=== PATIENT | female | born 1940 | race Caucasian/White ===

== ENCOUNTER 2016-10-23 12:46 | Inpatient (IN) | payer OTHER ==
[~2016-10-23] VITALS: Ht 149.9 cm; Wt 54.1 kg
[~2016-10-23 12:46] MED LIST: ADULT LOW STREN81 M3 PO; ALBUTEROL2.5 MG/3 M IH; AMOXICILLIN500 MG PO; ASPIR 8181 M1 PO; ASPIRIN CHEWABL81 M2 PO; AUGMENTIN875 MG PO; B-121000 MCG PO; CALCIUM500 M4 PO; CALTRATE 6001 TABLET PO; CALTRATE PLUS1 EACH PO; CEFTIN500 MG PO; CENTRUM SILV1 TABLE1 PO; CENTRUM SILVER1 EAC3 PO; CENTRUM SILVER1 EAC4 PO; CLOBETASOL PROPIONAT; COZAAR50 MG PO; CRANBERRY200 MG PO; CYANOCOBALAMI100 MCG PO; Calcium Carbonate,Ca PO; DESYREL 150 MG150 MG PO; DHA COMPLETE200 MG PO; DHA PRENATAL200 MG PO; DHA100 MG PO; DHEA50 MG PO; ELAVIL10 MG PO; FISH OIL 1,0001 EAC7 PO; FISH OIL 1,2001 EAC4 PO; FISH OIL CONC1 EACH PO; FLAX OIL1000 MG PO; FLAXSEED OIL1000 M4 PO; GLIPIZIDE ER2.5 MG PO; GLIPIZIDE PO; GLUCOTROL XL2.5 MG PO; GLUCOTROL10 MG PO; HYDROCHLOROTH12.5 M3 PO; HYDROCHLOROTHIAZIDE PO; HYDROCODON-ACE1 EAC7 PO; HYDROCODON-ACE1 EACH PO; IMDUR30 MG PO; ISOSORBIDE MONO30 MG PO; KETOCONAZOLE120 ML TP; KLOR-CON 1010 ME1 PO; LEVAQUIN750 MG PO; LOPRESSOR50 MG PO; LOSARTAN POTASS50 MG PO; LUMIGAN 0.01% LEFT EYE; LUMIGAN 0.50 DROP/2. LEFT EYE; LUMIGAN LEFT EYE; LUMIGAN2.5 ML BOTH EYES; LUTEIN20 MG PO; LUTEIN6 MG PO; MAGNESIUM400 M1 PO; METOPROLOL TART50 MG PO; NASACORT AQ16.5 GM BOTH NARES; NASACORT10.8 ML BOTH NARES; NIACIN500 M1 PO; NIASPAN,SLO-N1000 MG PO; NIASPAN,SLO-NI750 MG PO; NIASPAN750 MG PO; NIZORAL 2% CREA15 GM PO; OCUVITE SOFTGE1 EACH PO; PREDNISONE10 MG PO; Proventil,Ventolin H IH; RANITIDINE HCL150 MG PO; ST. JOSEPH ASPI81 MG PO; SYMBICORT60 INHALAT IH; TEMOVATE TP; TESSALON PERLE100 MG PO; TOPROL XL50 MG PO; TRAZODONE HCL150 MG PO; TYLENOL EXTRA500 MG PO; TYLENOL WITH C1 EACH PO; VENTOLIN HFA18 GM IH; VENTOLIN17 GM IH; VITAMIN B122500 MCG PO; ZANTAC150 MG PO; ZANTAC300 MG PO; ZITHROMAX Z-PA250 MG PO; ZYRTEC10 M3 PO
[2016-10-23 13:58] LABS: HEMATOCRIT 37.7 % (36.0-46.0); MCH 31.2 PG (29.0-34.0); MCHC 32.9 G/DL (30.0-36.0); MCV 94.7 FL (83-99); MEAN PLAT.VOLUME 9.5 uM^3 (9.5-12.4); PLATELET COUNT 200 K/uL (156-360); RBC DIS.WIDTH-SD 48.4 % (39-53); RED BLOOD COUNT 3.98 M/uL (3.80-5.20); WHITE BLOOD COUNT 13.2 K/uL (4.1-10.2)
[2016-10-23 14:09] LABS: CHLORIDE 102 mEq/L (99-109); POTASSIUM 3.8 mEq/L (3.7-5.4); SODIUM 139 mEq/L (136-147)
[2016-10-23 14:10] LABS: D-DIMER ELISA 1.71 mg/L FEU (< 0.57); PROTHROMBIN TIME 10.4 (9.2-11.2); PTT 24.1 (25-32)
[2016-10-23 14:12] LABS: GLUCOSE 150 mg/dL (70-99)
[2016-10-23 14:13] LABS: ANION GAP 14 MEQ/L (2-14)
[2016-10-23 14:15] LABS: ALKALINE PHOSPHATASE 90 IU/L (3-129); GFR ESTIMATE (CALCULATED) > 59 mL/min/
[2016-10-23 14:16] LABS: UREA NITROGEN (BUN) 16 mg/dL (9-23)
[2016-10-23 14:17] LABS: DIRECT BILIRUBIN 0.4 mg/dL (0.0-0.3)
[2016-10-23 14:19] LABS: CREATINE KINASE 61 IU/L (1-294); LIPASE 13 U/L (1.0-51.0)
[2016-10-23 14:26] LABS: TROP-I INTERPRETATION POSITIVE; TROPONIN-I 0.83 ng/mL (0.0-0.30)
[2016-10-23] MEDS ORDERED: LUMIGAN 0.50 DROP/22 BOTH EYES (15:06)
[2016-10-23] MEDS ORDERED: NIASPAN,SLO-N1000 MG PO (15:07)
[2016-10-23] MEDS ORDERED: FISH OIL 1,001000 M2 PO (15:10)
[2016-10-23] MEDS ORDERED: CYANOCOBALAM1000 MCG PO (15:11)
[2016-10-23] MEDS ORDERED: GLIPIZIDE ER2.5 MG PO (15:13)
[2016-10-23 17:42] LABS: HEMATOCRIT 37.1 % (36.0-46.0); MCH 31.6 PG (29.0-34.0); MCHC 33.7 G/DL (30.0-36.0); MCV 93.9 FL (83-99); MEAN PLAT.VOLUME 9.1 uM^3 (9.5-12.4); PLATELET COUNT 184 K/uL (156-360); RBC DIS.WIDTH-CV 13.9 % (11.8-14.6); RBC DIS.WIDTH-SD 48.2 % (39-53); RED BLOOD COUNT 3.95 M/uL (3.80-5.20); WHITE BLOOD COUNT 14.1 K/uL (4.1-10.2)
[2016-10-23 18:05] LABS: TROP-I INTERPRETATION POSITIVE; TROPONIN-I 1.35 ng/mL (0.0-0.30)
[2016-10-23 19:40] VITALS: BP 125/63
[2016-10-23 21:43] LABS: INTER. NORMALIZED RATIO 1.1; PROTHROMBIN TIME 11.3 (9.2-11.2)
[2016-10-23 21:54] LABS: PTT 87.9 (25-32)
[2016-10-23 23:20] VITALS: BP 118/72
[2016-10-24 01:26] LABS: TROP-I INTERPRETATION POSITIVE; TROPONIN-I 1.11 ng/mL (0.0-0.30)
[2016-10-24 04:33] VITALS: BP 108/57
[2016-10-24 06:17] LABS: HEMATOCRIT 33.7 % (36.0-46.0); MCH 31.9 PG (29.0-34.0); MCHC 33.8 G/DL (30.0-36.0); MCV 94.4 FL (83-99); MEAN PLAT.VOLUME 9.9 uM^3 (9.5-12.4); PLATELET COUNT 177 K/uL (156-360); RBC DIS.WIDTH-CV 14.2 % (11.8-14.6); RBC DIS.WIDTH-SD 49.1 % (39-53); RED BLOOD COUNT 3.57 M/uL (3.80-5.20); WHITE BLOOD COUNT 13.3 K/uL (4.1-10.2)
[2016-10-24 06:46] LABS: HDL CHOLESTEROL 73 MG/DL (Desirable>=50); LDL CHOLESTEROL 72 mg/dL (Desirable<100); NON-HDL CHOLESTEROL 82 mg/dL (Desirable<160); TOTAL CHOLESTEROL 155 mg/dL (Desirable<200); TRIGLYCERIDES 49 MG/DL (Normal: <150)
[2016-10-24 06:57] LABS: EOSINOPHIL (%) 0 % (0-5); IMMATURE GRANULOCYTE (%) 0.8 % (0.0-0.7); IMMATURE GRANULOCYTE COUNT 0.1 K/uL; INSTRUMENT ABS NEUTROPHIL CT 11.9 K/uL; LYMPHOCYTE COUNT 0.7 K/uL (1.0-2.8); MONOCYTE COUNT 0.7 K/uL (0-0.8); NEUTROPHIL (%) 89.1 % (45-76); NEUTROPHIL COUNT 11.9 K/uL (1.8-6.4)
[2016-10-24 07:26] VITALS: BP 102/57
[2016-10-24 07:52] LABS: Estimated Average Glucose 120 mg/dL (70-123); HEMOGLOBIN A1c (GLYCOHEMOGLOB) 5.8 % HGB (Below 5.7)
[2016-10-24 08:07] LABS: POINT-OF-CARE METER ID UU13113781
[2016-10-24 10:06] LABS: INTERNAL CONTROL VALID? YES
[2016-10-24 11:40] VITALS: BP 93/53
[2016-10-24 15:24] VITALS: BP 106/53
[2016-10-24 16:31] LABS: POINT-OF-CARE METER ID UU13113781
[2016-10-24 21:33] VITALS: BP 100/61
[2016-10-24 21:39] LABS: POINT-OF-CARE METER ID UU14174216
[2016-10-24 23:51] VITALS: BP 109/54
[2016-10-25 03:44] VITALS: BP 125/63
[2016-10-25 04:57] LABS: EOSINOPHIL (%) 0.2 % (0-5); HEMATOCRIT 29.9 % (36.0-46.0); IMMATURE GRANULOCYTE (%) 0.4 % (0.0-0.7); LYMPHOCYTE COUNT 1.2 K/uL (1.0-2.8); MCH 31.6 PG (29.0-34.0); MCHC 33.4 G/DL (30.0-36.0); MCV 94.6 FL (83-99); MONOCYTE (%) 6.9 % (3-12); MONOCYTE COUNT 0.7 K/uL (0-0.8); NEUTROPHIL (%) 80.6 % (45-76); PLATELET COUNT 187 K/uL (156-360); RBC DIS.WIDTH-CV 14.6 % (11.8-14.6); RBC DIS.WIDTH-SD 51.5 % (39-53); RED BLOOD COUNT 3.16 M/uL (3.80-5.20)
[2016-10-25 05:09] LABS: CHLORIDE 107 mEq/L (99-109); POTASSIUM 3.6 mEq/L (3.7-5.4); SODIUM 142 mEq/L (136-147)
[2016-10-25 05:10] LABS: GLUCOSE 114 mg/dL (70-99)
[2016-10-25 05:12] LABS: ANION GAP 9 MEQ/L (2-14)
[2016-10-25 05:14] LABS: GFR ESTIMATE (CALCULATED) > 59 mL/min/
[2016-10-25 05:15] LABS: UREA NITROGEN (BUN) 17 mg/dL (9-23)
[2016-10-25 07:26] VITALS: BP 142/69
[2016-10-25 08:10] LABS: POINT-OF-CARE METER ID UU13113781; POINT-OF-CARE USER ID ENVKC36
[2016-10-25 11:32] LABS: POINT-OF-CARE METER ID UU13113781; POINT-OF-CARE USER ID ENVKC36
[2016-10-25 11:50] VITALS: BP 106/55
[2016-10-25 15:53] VITALS: BP 140/60
[2016-10-25 16:52] LABS: POINT-OF-CARE METER ID UU13113781; POINT-OF-CARE USER ID ENVKC36
[2016-10-25 20:27] VITALS: BP 126/59
[2016-10-25 21:58] LABS: POINT-OF-CARE METER ID UU14174216
[2016-10-26] VITALS (7 sets, daily range): BP systolic 113–159; BP diastolic 57–80
[2016-10-26 07:25] LABS: EOSINOPHIL (%) 1.6 % (0-5); EOSINOPHIL COUNT 0.1 K/uL (0-0.3); HEMATOCRIT 31.7 % (36.0-46.0); IMMATURE GRANULOCYTE (%) 0.8 % (0.0-0.7); IMMATURE GRANULOCYTE COUNT 0.1 K/uL; INSTRUMENT ABS NEUTROPHIL CT 4.9 K/uL; LYMPHOCYTE COUNT 1.3 K/uL (1.0-2.8); MCH 31.5 PG (29.0-34.0); MCHC 32.5 G/DL (30.0-36.0); MCV 96.9 FL (83-99); MEAN PLAT.VOLUME 10.2 uM^3 (9.5-12.4); MONOCYTE (%) 9.2 % (3-12); MONOCYTE COUNT 0.7 K/uL (0-0.8); NEUTROPHIL (%) 69.3 % (45-76); NEUTROPHIL COUNT 4.9 K/uL (1.8-6.4); PLATELET COUNT 212 K/uL (156-360); RBC DIS.WIDTH-CV 14.7 % (11.8-14.6); RBC DIS.WIDTH-SD 52.6 % (39-53); RED BLOOD COUNT 3.27 M/uL (3.80-5.20); WHITE BLOOD COUNT 7.1 K/uL (4.1-10.2)
[2016-10-26 08:00] LABS: POINT-OF-CARE METER ID UU13113781
[2016-10-26 09:37] LABS: ANION GAP 8 MEQ/L (2-14); CHLORIDE 106 MEQ/L (99-109); GFR ESTIMATE (CALCULATED) > 59 mL/min/; GLUCOSE 100 mg/dL (70-99); POTASSIUM 3.8 MEQ/L (3.7-5.4); SAMPLE HEMOLYSIS CHECK 0; SAMPLE ICTERIC CHECK 0; SAMPLE LIPEMIA CHECK 0; SODIUM 142 MEQ/L (136-147); UREA NITROGEN (BUN) 11 mg/dL (9-23)
[2016-10-26 12:06] LABS: POINT-OF-CARE METER ID UU13113781
[2016-10-27 03:30] VITALS: BP 116/57
[2016-10-27 07:50] LABS: HEMATOCRIT 31.8 % (36.0-46.0); MCH 32.3 PG (29.0-34.0); MCHC 33.3 G/DL (30.0-36.0); MEAN PLAT.VOLUME 10.2 uM^3 (9.5-12.4); PLATELET COUNT 228 K/uL (156-360); RBC DIS.WIDTH-CV 14.5 % (11.8-14.6); RED BLOOD COUNT 3.28 M/uL (3.80-5.20); WHITE BLOOD COUNT 7.3 K/uL (4.1-10.2)
[2016-10-27 08:45] VITALS: BP 133/79
[2016-10-27 08:59] LABS: ANION GAP 11 MEQ/L (2-14); CHLORIDE 105 MEQ/L (99-109); GFR ESTIMATE (CALCULATED) > 59 mL/min/; GLUCOSE 130 mg/dL (70-99); POTASSIUM 4.1 MEQ/L (3.7-5.4); SAMPLE HEMOLYSIS CHECK 0; SAMPLE ICTERIC CHECK 0; SAMPLE LIPEMIA CHECK 0; SODIUM 141 MEQ/L (136-147); UREA NITROGEN (BUN) 15 mg/dL (9-23)
[2016-10-27 10:33] LABS: EOSINOPHIL (%) 0 % (0-5); HEMATOCRIT 32.5 % (36.0-46.0); IMMATURE GRANULOCYTE (%) 1.2 % (0.0-0.7); IMMATURE GRANULOCYTE COUNT 0.1 K/uL; INSTRUMENT ABS NEUTROPHIL CT 5.8 K/uL; LYMPHOCYTE COUNT 0.8 K/uL (1.0-2.8); MCH 31.9 PG (29.0-34.0); MCHC 32.6 G/DL (30.0-36.0); MCV 97.9 FL (83-99); MEAN PLAT.VOLUME 10.3 uM^3 (9.5-12.4); MONOCYTE (%) 7.3 % (3-12); MONOCYTE COUNT 0.5 K/uL (0-0.8); NEUTROPHIL (%) 80.6 % (45-76); NEUTROPHIL COUNT 5.8 K/uL (1.8-6.4); PLATELET COUNT 244 K/uL (156-360); RBC DIS.WIDTH-CV 14.7 % (11.8-14.6); RBC DIS.WIDTH-SD 53.6 % (39-53); RED BLOOD COUNT 3.32 M/uL (3.80-5.20); WHITE BLOOD COUNT 7.2 K/uL (4.1-10.2)
[2016-10-27] MEDS ORDERED: PRAVASTATIN SOD40 MG PO (11:35)
[2016-10-27] MEDS ORDERED: LOSARTAN POTASS25 MG PO (11:36)
[2016-10-27] MEDS ORDERED: ASPIR-LOW81 MG PO (11:37)
[2016-10-27] MEDS ORDERED: PREDNISONE10 MG PO (11:38)
[2016-10-27] MEDS ORDERED: LEVAQUIN500 MG PO (11:38)
[2016-10-27] MEDS ORDERED: PEPCID20 MG PO (11:39)
[2016-10-27 11:40] VITALS: BP 136/65
== END 2016-10-27 14:01 | disposition home or self-care (01) | DRG 280 ==
LOC: EME 12:46 → EDOF 17:00 → 4EAST 17:00
PROVIDERS: Emergency Medicine; Hospitalist; Internal Medicine
DX: I21.4 Non-ST elevation (NSTEMI) myocardial infarction (principal); J44.0 Chronic obstructive pulmonary disease with (acute) lower respiratory infection; J15.4 Pneumonia due to other streptococci; I25.810 Atherosclerosis of coronary artery bypass graft(s) without angina pectoris; I10 Essential (primary) hypertension; E11.65 Type 2 diabetes mellitus with hyperglycemia; E78.5 Hyperlipidemia, unspecified; I34.0 Nonrheumatic mitral (valve) insufficiency; I49.1 Atrial premature depolarization; H40.9 Unspecified glaucoma; Z66 Do not resuscitate; Z91.81 History of falling; Z86.73 Personal history of transient ischemic attack (TIA), and cerebral infarction without residual deficits; Z85.038 Personal history of other malignant neoplasm of large intestine; Z90.49 Acquired absence of other specified parts of digestive tract; Z95.1 Presence of aortocoronary bypass graft; Z95.5 Presence of coronary angioplasty implant and graft; Z95.2 Presence of prosthetic heart valve; Z79.82 Long term (current) use of aspirin; Z79.84 Long term (current) use of oral hypoglycemic drugs; Z60.2 Problems related to living alone
CPT/HCPCS: 71020; 71275; 72220; 80048; 80061; 80076; 82550; 82948; 83036; 83605; 83690; 83880; 84484; 85025; 85027; 85379; 85610; 85730; 87040; 87070; 87205; 87449; 93005; 93306; 94640; 94640 76; 99202; 99281; 99285; J0456; J0696; J1815; J3475; J7030; J7050; J7512

== ENCOUNTER 2017-06-15 11:16 | Emergency (ER) | payer OTHER ==
[~2017-06-15] VITALS: Ht 149.9 cm; Wt 55.0 kg
[~2017-06-15 11:16] MED LIST changes: +ASPIR-LOW81 MG PO; +CYANOCOBALAM1000 MCG PO; +FISH OIL 1,001000 M2 PO; +LEVAQUIN500 MG PO; +LOSARTAN POTASS25 MG PO; +LUMIGAN 0.50 DROP/22 BOTH EYES; +PEPCID20 MG PO; +PRAVASTATIN SOD40 MG PO
[2017-06-15 12:25] LABS: HEMATOCRIT 35.7 % (36.0-46.0); HEMOGLOBIN 11.8 G/DL (11.9-15.5); MCHC 33.1 G/DL (30.0-36.0); MCV 96.7 FL (83-99); PLATELET COUNT 223 K/uL (156-360); RBC DIS.WIDTH-CV 12.8 % (11.8-14.6); RBC DIS.WIDTH-SD 45.9 % (39-53); RED BLOOD COUNT 3.69 M/uL (3.80-5.20); WHITE BLOOD COUNT 9.7 K/uL (4.1-10.2)
[2017-06-15 12:34] LABS: ALBUMIN 3.5 g/dL (3.2-4.8); CHLORIDE 102 mEq/L (99-109); POTASSIUM 4.4 mEq/L (3.7-5.4); SODIUM 140 mEq/L (136-147)
[2017-06-15 12:36] LABS: GLUCOSE 78 mg/dL (70-99); TOTAL PROTEIN 5.7 g/dL (6.4-8.3)
[2017-06-15 12:38] LABS: TOTAL BILIRUBIN 1.3 mg/dL (0.0-1.0)
[2017-06-15 12:40] LABS: ALKALINE PHOSPHATASE 129 IU/L (3-129); CREATININE 0.7 mg/dL (0.6-1.3); GFR ESTIMATE (CALCULATED) > 59 mL/min/
[2017-06-15 12:41] LABS: UREA NITROGEN (BUN) 21 mg/dL (9-23)
[2017-06-15 12:42] LABS: AST (GOT) 38 IU/L (2-34)
[2017-06-15 12:43] LABS: ALT (GPT) 32 IU/L (3-49)
[2017-06-15 13:57] LABS: APPEARANCE SL.HAZY ((CLEAR)); BILIRUBIN NEGATIVE; BLOOD SMALL; COLOR YELLOW ((YELLOW)); GLUCOSE (STRIP) NEGATIVE; KETONES 80; LEUKOCYTES NEGATIVE; NITRITE NEGATIVE; PROTEIN (STRIP) 30; SPECIFIC GRAVITY 1.021 (1.000-1.030)
[2017-06-15 14:07] LABS: BACTERIA RARE /HPF; CALCIUM OXALATE CRYSTALS 3+ /HPF; EPITHELIAL CELLS 1+ /HPF; HYALINE CASTS 0-5 /LPF; MUCUS TRACE /LPF; UCUL ADDED? YES
[2017-06-15] MEDS ORDERED: FLAGYL500 MG PO (15:11)
[2017-06-15] MEDS ORDERED: ZOFRAN ODT4 MG PO (15:11)
[2017-06-15] MEDS ORDERED: ULTRAM50 MG PO (15:11)
[2017-06-15] MEDS ORDERED: CIPRO500 MG PO (15:11)
[2017-06-15 16:02] VITALS: BP 124/83
== END 2017-06-15 16:14 | disposition home or self-care (01) ==
LOC: EME 11:16
DX: K52.9 Noninfective gastroenteritis and colitis, unspecified (principal); R10.31 Right lower quadrant pain; R11.2 Nausea with vomiting, unspecified; E11.9 Type 2 diabetes mellitus without complications; I10 Essential (primary) hypertension; I25.2 Old myocardial infarction; K51.90 Ulcerative colitis, unspecified, without complications; J44.9 Chronic obstructive pulmonary disease, unspecified; Z86.73 Personal history of transient ischemic attack (TIA), and cerebral infarction without residual deficits; Z87.442 Personal history of urinary calculi; Z88.0 Allergy status to penicillin; Z90.49 Acquired absence of other specified parts of digestive tract; Z95.1 Presence of aortocoronary bypass graft
CPT/HCPCS: 74177; 80053; 81003; 85027; 87086; 99281; 99285; J2270; J2405; J7030

== ENCOUNTER 2017-08-06 20:41 | Emergency (ER) | payer OTHER ==
[~2017-08-06] VITALS: Ht 149.9 cm; Wt 56.5 kg
[~2017-08-06 20:41] MED LIST changes: +CIPRO500 MG PO; +FLAGYL500 MG PO; +ULTRAM50 MG PO; +ZOFRAN ODT4 MG PO
[2017-08-06] MEDS ORDERED: ULTRAM50 MG PO (22:37)
[2017-08-06 23:28] VITALS: BP 164/99
== END 2017-08-06 23:30 | disposition home or self-care (01) ==
LOC: EME 20:41
DX: S42.402A Unspecified fracture of lower end of left humerus, initial encounter for closed fracture (principal); M25.552 Pain in left hip; W01.0XXA Fall on same level from slipping, tripping and stumbling without subsequent striking against object, initial encounter; Y93.89 Activity, other specified; I10 Essential (primary) hypertension; E11.9 Type 2 diabetes mellitus without complications; I25.2 Old myocardial infarction; Z87.442 Personal history of urinary calculi; Z86.73 Personal history of transient ischemic attack (TIA), and cerebral infarction without residual deficits; Z85.828 Personal history of other malignant neoplasm of skin; Z95.1 Presence of aortocoronary bypass graft; Z90.49 Acquired absence of other specified parts of digestive tract; Z79.84 Long term (current) use of oral hypoglycemic drugs; Z88.0 Allergy status to penicillin; Z88.8 Allergy status to other drugs, medicaments and biological substances
CPT/HCPCS: 70450; 72125; 73030; 73502; 99281; 99284; J3010

== ENCOUNTER 2017-11-04 14:32 | Emergency (ER) | payer OTHER ==
[~2017-11-04] VITALS: Ht 149.9 cm; Wt 54.5 kg
[2017-11-04 17:36] VITALS: BP 107/56
== END 2017-11-04 17:36 | disposition home or self-care (01) ==
LOC: EME 14:32
DX: S70.01XA Contusion of right hip, initial encounter (principal); S83.91XA Sprain of unspecified site of right knee, initial encounter; W18.30XA Fall on same level, unspecified, initial encounter; I10 Essential (primary) hypertension; E11.9 Type 2 diabetes mellitus without complications; I25.2 Old myocardial infarction; Z95.1 Presence of aortocoronary bypass graft; Z87.442 Personal history of urinary calculi; Z86.73 Personal history of transient ischemic attack (TIA), and cerebral infarction without residual deficits; Z85.828 Personal history of other malignant neoplasm of skin; Z90.49 Acquired absence of other specified parts of digestive tract; Z79.84 Long term (current) use of oral hypoglycemic drugs; Z88.0 Allergy status to penicillin; Z88.8 Allergy status to other drugs, medicaments and biological substances
CPT/HCPCS: 73502; 73564; 99281; 99284